=== PATIENT | female | born 1995 | race Caucasian/White ===

== ENCOUNTER 2017-01-01 12:30 | Emergency (ER) | payer BC ==
[~2017-01-01 12:30] MED LIST: ACETAMINOPHEN325 MG PO; CULTURELLE1 EACH PO; DAILY VITE1 EACH PO; VANCOCIN HCL125 MG PO
== END 2017-01-01 15:36 | disposition home or self-care (01) ==
LOC: ER 12:30
DX: K52.9 Noninfective gastroenteritis and colitis, unspecified (principal); Z88.1 Allergy status to other antibiotic agents; Z88.8 Allergy status to other drugs, medicaments and biological substances
CPT/HCPCS: 36415; 96361; 96374; 96375; J1885